=== PATIENT | female | born 1945 | race Caucasian/White ===

== ENCOUNTER → 2017-09-27 | Outpatient (CLI) | payer MEDICARE, BC ==
[~2017-09-27] MED LIST: BLOOD PRESSURE MED; NORCO 325 MG-51 TAB PO; PRILOSEC10 MG PO; SIMVASTATIN10 MG PO
== END ==
LOC: COL.RAD 10:30
DX: M47.812 Spondylosis without myelopathy or radiculopathy, cervical region (principal)

== ENCOUNTER → 2017-11-06 | Outpatient (CLI) | payer MEDICARE, BC | LOC: MC.RAD 08:20 | DX: Z12.31 Encounter for screening mammogram for malignant neoplasm of breast (principal) ==

== ENCOUNTER → 2019-12-02 | Outpatient (CLI) | payer MEDICARE, BC | LOC: MC.RAD 08:21 | DX: Z12.31 Encounter for screening mammogram for malignant neoplasm of breast (principal) ==

== ENCOUNTER 2020-04-14 07:51 | Day surgery (SDC) | payer MEDICARE, BC ==
[~2020-04-14] VITALS: Ht 152.4 cm; Wt 82.7 kg
[2020-04-14 08:59] LABS: COLLECTION METHOD CLEAN CATCH
[2020-04-14 09:04] LABS: BASO % 0.3 % (0.0-2.0); EOS % 0.2 % (0-4.0); GRAN # 7.6 (1.4-6.5); GRAN % 86.3 % (42.2-75.2); HEMATOCRIT 40.2 % (37.0-47.0); HEMOGLOBIN 13.5 g/dl (12.5-16.0); LYMPH # 0.6 (1.2-3.4); LYMPH % 6.9 % (20.0-51.0); MEAN CELL VOLUME 96 fl (80.0-100.0); MEAN CORPUSCULAR HEMOGLOBIN 32 pg (27.0-31.0); MEAN CORPUSCULAR HGB CONC 34 g/dl (33.0-37.0); MEAN PLATELET VOLUME 9.7 fl (7.4-10.4); MONO # 0.5 (0.1-0.6); MONO % 6.1 % (1.7-9.3); PLATELET COUNT 199 K/mm3 (130-400); REDCELL DISTRIBUTION WIDTH-CV 12.4 % (11.5-14.5)
[2020-04-14] MEDS ORDERED: ZOCOR 20MG20 MG PO (09:06)
[2020-04-14] MEDS ORDERED: ZIAC 10/6.25M1 UDTAB PO (09:07)
[2020-04-14] MEDS ORDERED: PRILOSEC 20MG20 MG PO (09:07)
[2020-04-14] MEDS ORDERED: ULTRAM 50MG TAB50 MG PO (09:08)
[2020-04-14] MEDS ORDERED: DESYREL 50MG50 MG PO (09:08)
[2020-04-14 09:16] LABS: MUCOUS Present /lpf; PH 6 (5-8); SQUAMOUS EPITHELIAL 0-2 /hpf; URINE APPEARANCE Clear; URINE BACTERIA Rare /hpf; URINE BILIRUBIN Negative (NEGATIVE); URINE BLOOD Negative (NEGATIVE); URINE COLOR Yellow; URINE GLUCOSE Negative (NEGATIVE); URINE KETONE Negative (NEGATIVE); URINE LEUKOCYTE ESTERASE Negative (NEGATIVE); URINE NITRATE Negative (NEGATIVE); URINE PROTEIN(semi-quant) Negative (NEGATIVE); URINE UROBILINOGEN >=4.0 mg/dL (NEGATIVE)
[2020-04-14 09:17] LABS: ALBUMIN 4.4 gm/dL (3.5-5.0); BILIRUBIN,TOTAL 0.6 mg/dL (0.0-1.0); C-REACTIVE PROTEIN 0.6 mg/dL (0.0-0.9); CALCIUM 9.2 mg/dL (8.4-10.2); CREATININE, serum 0.58 (0.52-1.25); POTASSIUM 3.7 mmol/L (3.4-5.0); TOTAL PROTEIN 6.7 gm/dL (6.4-8.2)
[2020-04-14 15:30] VITALS: BP 112/40; PULSE 16; TEMP 98.2
--- NOTE | 2020-04-14 15:30 | NUR ---
TO RM 8 PER CART FROM PACU. ALERT ORIENTED X 3, TALKING TO STAFF. PATIENT VERBALIZED HOW GREAT SHE FEELS. DENIES PAIN OR DISCOMFORT. DENIES NAUSEA OR VOMITING. BANDAIDES ARE CLEAN DRY INTACT. RECEIVED SPITE
[2020-04-14 15:43] VITALS: TEMP 98.4
[2020-04-14 15:45] VITALS: BP 122/56; PULSE 67
--- NOTE | 2020-04-14 15:45 | NUR ---
CONTINUES TO DENY PAIN OR DISCOMFORT. RECEHED JAD [place].
[2020-04-14 16:00] VITALS: BP 119/52; PULSE 63
--- NOTE | 2020-04-14 16:00 | NUR ---
ATE 2 CRACKERS AND FINISHED SPRITE. DENIES WANTING ANYTHING ELSE TO EAT OR DRINK. RESTING QUIETLY
[2020-04-14 16:15] VITALS: BP 116/50; PULSE 66
--- NOTE | 2020-04-14 16:15 | NUR ---
AMBULATED TO BATHROOM. VOIDED AND AMBULATED BACK TO BED. PATIENT STATED " I FEEL GREAT AND WANT TO GO HOME."
--- NOTE | 2020-04-14 16:30 | NUR ---
DR GOMES CALLED - RECEIVED ORDERS FOR PATIENT TO BE DISCHARGED. DISCONTINUED IV AND INT- CATHETER INTACT. PATIENT GETTING DRESSED. PRESCRIPTION BEING SENT PER E-SCRIPT TO [facility].
[2020-04-14] MEDS ORDERED: NORCO 325 MG-51 TAB PO (16:39)
--- NOTE | 2020-04-14 16:55 | NUR ---
RECEIVED DISCHARGE INSTRUCTIONS AND VERBALIZED UNDERSTANDING. PATIENT CALLED DAUGHTER FOR RIDE HOME.
--- NOTE | 2020-04-14 17:10 | NUR ---
DISCHARGED PER WC BY NURSING STAFF TO PRIVATE CAR IN CARE OF DAUGHTER - INDER.
[2020-04-21] MEDS ORDERED: ALEVE 220MG220 MG PO (16:01)
[2020-04-21] MEDS ORDERED: ALKA-SELTZER HE1 TEF PO (16:02)
== END 2020-04-14 17:33 | disposition home or self-care (01) ==
LOC: COL.ER 07:51 → SDCO 13:00 → JCC 14:49 → SDCO 14:49
PROVIDERS: Family Medicine
DX: K81.2 Acute cholecystitis with chronic cholecystitis (principal); K82.1 Hydrops of gallbladder; K57.90 Diverticulosis of intestine, part unspecified, without perforation or abscess without bleeding; I10 Essential (primary) hypertension; E78.5 Hyperlipidemia, unspecified; Z98.84 Bariatric surgery status; E66.9 Obesity, unspecified; M19.90 Unspecified osteoarthritis, unspecified site; G89.29 Other chronic pain; Z79.899 Other long term (current) drug therapy; Z68.35 Body mass index [BMI] 35.0-35.9, adult
CPT/HCPCS: J1100; J1170; J1885; J2270; J2405; J2543; J2704; J3010; J7120; Q9967

== ENCOUNTER 2022-01-27 14:52 | Outpatient (CLI) | payer MEDICARE, BC ==
[~2022-01-27 14:52] MED LIST changes: +ALEVE 220MG220 MG PO; +ALKA-SELTZER HE1 TEF PO; +DECADRON6 MG PO; +DESYREL 50MG50 MG PO; +PRILOSEC 20MG20 MG PO; +PROAIR HFA0.09 MG/AC IH; +TYLENOL 325MG325 MG PO; +ULTRAM 50MG TAB50 MG PO; +ZIAC 10/6.25M1 UDTAB PO; +ZOCOR 20MG20 MG PO
[2022-01-27 15:34] VITALS: BP 144/77; PULSE 48; TEMP 98.1
[2022-01-27] MEDS ORDERED: RECLAST5 MG/100 M IV (15:39)
== END 2022-02-01 17:19 ==
LOC: EUO 14:52
DX: M81.0 Age-related osteoporosis without current pathological fracture (principal)
CPT/HCPCS: J3489